=== PATIENT | male | born 1955 | race African-American/Black ===

== ENCOUNTER 2020-06-25 17:11 | Inpatient (IN) ==
[2020-06-25] MEDS ORDERED: HEPARIN DRIP 25,000 UNITS/500 ML PREMIX IV ONE (17:21)
[2020-06-25] MEDS ORDERED: DEXTROSE 50% 25 GM/50 ML VIAL IV PRN (18:21)
[2020-06-25] MEDS ORDERED: GLUCAGON 1 MG VIAL IM PRN (18:21)
[2020-06-25] MEDS ORDERED: HEPARIN DRIP 25,000 UNITS/500 ML PREMIX IV SCH (18:30)
[2020-06-25 18:59] LABS: INR 1.1; PT Patient Result 12.4 SECS (10.5-12.0)
[2020-06-25 19:00] LABS: Partial Thromboplastin Time 67.8 SECS (23.9-33.8)
[2020-06-26 00:59] LABS: Partial Thromboplastin Time 45.7 SECS (23.9-33.8)
[2020-06-26] MEDS ORDERED: SODIUM CHLORIDE 0.9% 1,000 ML IV ONE (06:21)
[2020-06-26] MEDS ORDERED: MIDAZOLAM 2 MG/2 ML VIAL ONE (06:21)
[2020-06-26] MEDS ORDERED: propofoL 200 MG/20 ML VIAL IV ONE (06:21)
[2020-06-26] MEDS ORDERED: SEVOFLURANE 1 UNIT/15 MINUTE INH ONE ×6 (06:21→12:34)
[2020-06-26] MEDS ORDERED: ROCURONIUM 50 MG/5 ML VIAL IV ONE ×2 (06:21→10:08)
[2020-06-26] MEDS ORDERED: LACTATED RINGERS 1,000 ML IV ONE ×4 (06:21→11:30)
[2020-06-26] MEDS ORDERED: LIDOCAINE 2% 5 ML VIAL ONE (06:21)
[2020-06-26] MEDS ORDERED: fentaNYL 100 MCG/2 ML VIAL ONE ×3 (06:22→09:28)
[2020-06-26] MEDS ORDERED: HEPARIN 5,000 UNIT/1 ML VIAL ONE (06:33)
[2020-06-26] MEDS ORDERED: VANCOMYCIN 500 MG VIAL ONE (06:33)
[2020-06-26] MEDS ORDERED: HEPARIN/NACL 0.9% 2 UNITS/ML 1,000 UNIT/500 ML BAG IV ONE (06:36)
[2020-06-26] MEDS ORDERED: PHENYLEPHRINE DRIP 20 MG/250 ML PREMIX IV ONE (06:36)
[2020-06-26] MEDS ORDERED: NITROGLYCERIN DRIP 50 MG/250 ML BOTTLE IV ONE (06:36)
[2020-06-26] MEDS ORDERED: ceFAZolin 2,000 MG/50 ML DUPLEX IV ONE (07:00)
[2020-06-26] MEDS ORDERED: ROPIVACAINE 0.5% 30 ML VIAL ONE ×2 (08:07→08:10)
[2020-06-26] MEDS ORDERED: LIDOCAINE 1% 5 ML VIAL ONE (08:07)
[2020-06-26] MEDS ORDERED: DEXAMETHASONE 4 MG/1 ML VIAL ONE (08:07)
[2020-06-26] MEDS ORDERED: LACTATED RINGERS 1,000 ML IV SCH (08:30)
[2020-06-26] MEDS ORDERED: ceFAZolin 1,000 MG VIAL ONE ×2 (08:55→11:46)
[2020-06-26] MEDS ORDERED: SUGAMMADEX 200 MG/2 ML VIAL IV ONE (11:10)
[2020-06-26 11:31] LABS: ABG HCO3 24.4 MMOL/L (20-26); ABG PCO2 38.6 MM HG (35-48); ABG PH 7.409 (7.35-7.45); ABG TCO2 21.4 MMOL/L (23-27); Glucose Heart Surgery 273 MG/DL (74-106); Hematocrit Heart Surgery 39.5 PERCENT (42-52); Hemoglobin Heart Surgery 12.8 G/DL (14.0-18.0); Ionized Calcium Arterial 1.15 MMOL/L (1.21-1.46); PCO2 Patient Temp Arterial 38.6 MMHG; PH Patient Temp Arterial 7.409; Patient Temperature 37 CELCIUS; Potassium Heart/CVR 4.5 MMOL/L (3.5-5.1); Sodium Heart/CVR 133 MMOL/L (135-145)
[2020-06-26] MEDS ORDERED: HYDROmorphone 2 MG/1 ML VIAL ONE (11:54)
[2020-06-26] MEDS ORDERED: ONDANSETRON 4 MG/2 ML VIAL ONE ×3 (11:55)
[2020-06-26] MEDS ORDERED: ONDANSETRON 4 MG/2 ML VIAL IV PRN (11:59)
[2020-06-26] MEDS ORDERED: NALOXONE 0.4 MG/ML VIAL IV PRN (12:04)
[2020-06-26] MEDS: LACTATED RINGERS 1,000 ML IV SCH ×2 (12:20→20:25)
[2020-06-26 12:37] LABS: Bacteria,Urine Occasional /HPF (Few); Bilirubin,Urine Negative (Negative); Blood, Urine Small mg/dL (Negative); Glucose,Urine (UA) 150 mg/dL (Negative); Ketones,Urine Negative (Negative); Mucus,Urine Occasional /LPF (Occasional); Nitrite,Urine Negative (Negative); Protein,Urine 30 MG/DL; RBC,Urine 1 /HPF (0-4); Squamous Epithelial Cell,Urine Occasional /HPF (0-10); Urine Appearance CLEAR (Clear); Urine Color Yellow (Yellow); Urine Specific Gravity 1.018 (1.001-1.035); Urine Urobilinogen < 2.0 EU/DL (0.2-1.0)
[2020-06-26 12:53] LABS: Hematocrit 40.8 VOL% (42.0-52.0); Hemoglobin 13.1 GM/DL (14.0-18.0)
[2020-06-26 13:09] LABS: Calcium 8.2 MG/DL (8.5-10.1); Osmolality,Calculated 282.7 MOS/KG (273-304); Potassium 4.5 MMOL/L (3.5-5.1)
[2020-06-26] MEDS ORDERED: GLUCAGON 1 MG VIAL IM PRN (13:11)
[2020-06-26] MEDS ORDERED: DEXTROSE 50% 25 GM/50 ML VIAL IV PRN (13:11)
[2020-06-26] MEDS: HYDROmorphone PCA 30 MG/30 ML SYRINGE IV SCH (13:33)
[2020-06-26] MEDS: ALUMINUM/MAGNES/SIMETH MAX STR 30 ML UDCUP PER TUBE SCH ×3 (17:19→23:47)
[2020-06-26] MEDS: INSULIN REGULAR 100 UNIT/ML SUBCUT SCH (17:56)
[2020-06-27] MEDS: LACTATED RINGERS 1,000 ML IV SCH ×3 (03:39→20:49)
[2020-06-27] MEDS: INSULIN REGULAR 100 UNIT/ML SUBCUT SCH ×5 (04:22→23:44)
[2020-06-27 05:06] LABS: Basophils % 0.3 % (0.0-0.8); Hematocrit 41.6 VOL% (42.0-52.0); Hemoglobin 13.3 GM/DL (14.0-18.0); Immature Granulocytes % 0.4 %; Immature Granulocytes Absolute 0.03 #; Lymphocytes # 0.7 10*3/uL (1.4-4.0); Lymphocytes % 9.4 % (21.2-54.2); Mean Platelet Volume 11.3 FL (9.6-12.0); Monocytes % 8.8 % (1.7-12.7); Neutrophils % 81.1 % (38.7-73.9); Platelet Count 157 T/CUMM (130-400); Red Blood Count 4.16 MC/CUMM (3.8-5.5); Red Cell Distribution Width 11.9 % (9.3-17.3); White Blood Count 7.4 T/CUMM (4-12)
[2020-06-27 05:25] LABS: Calcium 8.3 MG/DL (8.5-10.1)
[2020-06-27] MEDS: ALUMINUM/MAGNES/SIMETH MAX STR 30 ML UDCUP PER TUBE SCH (05:40)
[2020-06-27] MEDS: METOCLOPRAMIDE 10 MG/2 ML VIAL IV SCH ×3 (12:05→23:55)
[2020-06-27] MEDS: HYDROmorphone PCA 30 MG/30 ML SYRINGE IV SCH (12:51)
[2020-06-28] MEDS: LACTATED RINGERS 1,000 ML IV SCH (04:53)
[2020-06-28] MEDS: METOCLOPRAMIDE 10 MG/2 ML VIAL IV SCH (06:25)
[2020-06-28] MEDS: INSULIN REGULAR 100 UNIT/ML SUBCUT SCH ×3 (06:33→18:40)
[2020-06-28 07:05] LABS: Basophils % 0.2 % (0.0-0.8); Hematocrit 35.4 VOL% (42.0-52.0); Hemoglobin 11.1 GM/DL (14.0-18.0); Immature Granulocytes % 0.5 %; Immature Granulocytes Absolute 0.05 #; Lymphocytes # 1.2 10*3/uL (1.4-4.0); Lymphocytes % 13.4 % (21.2-54.2); Mean Corpuscular HGB Conc 31.4 GM/DL (32-36); Mean Corpuscular Volume 100.6 FL (87-102); Mean Platelet Volume 10.8 FL (9.6-12.0); Monocytes % 11.3 % (1.7-12.7); Neutrophils % 74.6 % (38.7-73.9); Platelet Count 173 T/CUMM (130-400); Red Blood Count 3.52 MC/CUMM (3.8-5.5); Red Cell Distribution Width 11.9 % (9.3-17.3); White Blood Count 9.3 T/CUMM (4-12)
[2020-06-28] MEDS ORDERED: DEXTROSE 50% 25 GM/50 ML VIAL IV PRN (09:26)
[2020-06-28] MEDS ORDERED: GLUCAGON 1 MG VIAL IM PRN (09:26)
[2020-06-28] MEDS ORDERED: HYDROmorphone 2 MG/1 ML VIAL IV PRN ×2 (09:27)
[2020-06-28] MEDS ORDERED: BENZOCAINE/MENTHOL LOZENGE 18/BOX PO PRN (09:27)
[2020-06-28] MEDS: LACTOBACILLUS ACIDOPHILUS/BULGARICUS 1 PACKET PO SCH ×3 (11:18→21:11)
[2020-06-28] MEDS: ENOXAPARIN 40 MG/0.4 ML SYRINGE SUBCUT SCH (11:18)
[2020-06-29] MEDS: INSULIN REGULAR 100 UNIT/ML SUBCUT SCH ×5 (02:31→23:45)
[2020-06-29] MEDS: LACTOBACILLUS ACIDOPHILUS/BULGARICUS 1 PACKET PO SCH ×3 (08:51→20:37)
[2020-06-29] MEDS: ENOXAPARIN 40 MG/0.4 ML SYRINGE SUBCUT SCH (08:59)
[2020-06-30] MEDS: INSULIN REGULAR 100 UNIT/ML SUBCUT SCH ×2 (06:42→12:41)
[2020-06-30 08:50] LABS: Basophils % 0.6 % (0.0-0.8); Eosinophils # 0.2 10*3/uL (0.0-0.87); Eosinophils % 2.9 % (0.00-10.9); Hemoglobin 12.7 GM/DL (14.0-18.0); Immature Granulocytes % 0.9 %; Immature Granulocytes Absolute 0.06 #; Lymphocytes % 15.1 % (21.2-54.2); Mean Corpuscular HGB Conc 32.6 GM/DL (32-36); Mean Corpuscular Volume 97.5 FL (87-102); Mean Platelet Volume 10.1 FL (9.6-12.0); Monocytes % 11.9 % (1.7-12.7); Neutrophils % 68.6 % (38.7-73.9); Platelet Count 251 T/CUMM (130-400); Red Cell Distribution Width 11.9 % (9.3-17.3); White Blood Count 6.9 T/CUMM (4-12)
[2020-06-30] MEDS: ENOXAPARIN 40 MG/0.4 ML SYRINGE SUBCUT SCH (08:58)
[2020-06-30] MEDS: LACTOBACILLUS ACIDOPHILUS/BULGARICUS 1 PACKET PO SCH (09:00)
[2020-06-30 09:05] LABS: Calcium 8.8 MG/DL (8.5-10.1); Osmolality,Calculated 280.7 MOS/KG (273-304); Potassium 3.1 MMOL/L (3.5-5.1)
[2020-06-30 11:05] VITALS: BP 118/79
== END 2020-06-30 15:47 | disposition home or self-care (01) | DRG 271 ==
LOC: EDBD → EDUNIT# → N.ED 17:11 → N.EDINP 18:41 → N.3E 19:50
PROVIDERS: ADMIT Surgery; ATTEND Surgery

== ENCOUNTER 2021-03-20 13:57 | Inpatient (IN) ==
[2021-03-20 17:52] LABS: Basophils % 0.5 % (0.0-0.8); Eosinophils # 0.7 10*3/uL (0.0-0.87); Eosinophils % 9.5 % (0.00-10.9); Hematocrit 41.9 VOL% (42.0-52.0); Hemoglobin 12.8 GM/DL (14.0-18.0); Immature Granulocytes % 0.5 %; Immature Granulocytes Absolute 0.04 #; Lymphocytes # 1.8 10*3/uL (1.4-4.0); Lymphocytes % 23.4 % (21.2-54.2); Mean Corpuscular HGB Conc 30.5 GM/DL (32-36); Mean Corpuscular Volume 100.7 FL (87-102); Mean Platelet Volume 9.9 FL (9.6-12.0); Monocytes % 8.6 % (1.7-12.7); Neutrophils % 57.5 % (38.7-73.9); Platelet Count 215 T/CUMM (130-400); Red Blood Count 4.16 MC/CUMM (3.8-5.5); Red Cell Distribution Width 13.9 % (9.3-17.3); White Blood Count 7.6 T/CUMM (4-12)
[2021-03-20 18:10] LABS: Alanine Aminotransferase 18 U/L (16-61); Albumin 3.3 G/DL (3.4-5.0); Alkaline Phosphatase 117 U/L (45-117); Aspartate Amino Transferase 11 U/L (0-37); Bilirubin,Total < 0.39 MG/DL (0.20-1.00); Blood Urea Nitrogen 15 MG/DL (7-18); Carbon Dioxide 27 MMOL/L (21-32); Estimated Glom Filtration Rate 83 ML/MIN; Glucose 158 MG/DL (74-106); Osmolality,Calculated 282.4 MOS/KG (273-304); Potassium 4.6 MMOL/L (3.5-5.1); Sodium 140 MMOL/L (136-145); Total Protein 7.7 G/DL (6.4-8.2)
[2021-03-20] MEDS ORDERED: ONDANSETRON 4 MG/2 ML VIAL IV PRN (22:44)
[2021-03-20] MEDS ORDERED: ACETAMINOPHEN 325 MG TABLET PO PRN (22:44)
[2021-03-21] MEDS: PIPERACILLIN/TAZOBACTAM 3,375 MG in SODIUM CHLORIDE 0.9% 100 ML IV SCH ×3 (00:42→14:17)
[2021-03-21] MEDS: DEXTROSE 5% NACL 0.45% 1,000 ML IV SCH ×2 (00:42→20:57)
[2021-03-21] MEDS ORDERED: hydrALAZINE 20 MG/1 ML VIAL IV PRN (00:59)
[2021-03-21] MEDS ORDERED: VANCOMYCIN INJ 1,250 MG in SODIUM CHLORIDE 0.9% 250 ML IV SCH (01:00)
[2021-03-21] MEDS ORDERED: PIPERACILLIN/TAZOBACTAM 3,375 MG in SODIUM CHLORIDE 0.9% 100 ML IV SCH (01:00)
[2021-03-21] MEDS: VANCOMYCIN INJ 1,250 MG in SODIUM CHLORIDE 0.9% 250 ML IV SCH ×2 (04:18→15:30)
[2021-03-21] MEDS: PANTOPRAZOLE 40 MG TABLET PO SCH (08:58)
[2021-03-21] MEDS: ENOXAPARIN 30 MG/0.3 ML SYRINGE SUBCUT SCH (17:18)
[2021-03-22] MEDS: PIPERACILLIN/TAZOBACTAM 3,375 MG in SODIUM CHLORIDE 0.9% 100 ML IV SCH ×3 (00:16→17:28)
[2021-03-22] MEDS: VANCOMYCIN INJ 1,250 MG in SODIUM CHLORIDE 0.9% 250 ML IV SCH ×3 (04:24→22:28)
[2021-03-22] MEDS: PANTOPRAZOLE 40 MG TABLET PO SCH (08:36)
[2021-03-22] MEDS: ENOXAPARIN 30 MG/0.3 ML SYRINGE SUBCUT SCH (17:28)
[2021-03-23] MEDS: PIPERACILLIN/TAZOBACTAM 3,375 MG in SODIUM CHLORIDE 0.9% 100 ML IV SCH ×3 (02:18→19:12)
[2021-03-23] MEDS: VANCOMYCIN INJ 1,250 MG in SODIUM CHLORIDE 0.9% 250 ML IV SCH ×2 (08:12→15:51)
[2021-03-23] MEDS ORDERED: GLUCAGON 1 MG VIAL IM PRN (09:11)
[2021-03-23] MEDS ORDERED: DEXTROSE 10% 250 ML BAG IV PRN (09:11)
[2021-03-23] MEDS: PANTOPRAZOLE 40 MG TABLET PO SCH (09:43)
[2021-03-23] MEDS: INSULIN REGULAR 100 UNIT/ML SUBCUT SCH ×3 (14:17→20:34)
[2021-03-23] MEDS ORDERED: ENOXAPARIN 40 MG/0.4 ML SYRINGE SUBCUT SCH (21:00)
[2021-03-24] MEDS: PIPERACILLIN/TAZOBACTAM 3,375 MG in SODIUM CHLORIDE 0.9% 100 ML IV SCH ×3 (03:02→17:01)
[2021-03-24] MEDS: DEXTROSE 5% NACL 0.45% 1,000 ML IV SCH (03:03)
[2021-03-24] MEDS: INSULIN REGULAR 100 UNIT/ML SUBCUT SCH ×4 (08:12→20:19)
[2021-03-24] MEDS: VANCOMYCIN INJ 1,250 MG in SODIUM CHLORIDE 0.9% 250 ML IV SCH (08:12)
[2021-03-24] MEDS: PANTOPRAZOLE 40 MG TABLET PO SCH (08:12)
[2021-03-24] MEDS ORDERED: HEPARIN 5,000 UNIT/1 ML VIAL ONE (12:15)
[2021-03-24] MEDS ORDERED: fentaNYL 100 MCG/2 ML VIAL ONE (12:20)
[2021-03-24] MEDS ORDERED: MIDAZOLAM 2 MG/2 ML VIAL ONE (12:20)
[2021-03-24] MEDS ORDERED: ETOMIDATE 40 MG/20 ML VIAL IV ONE (12:20)
[2021-03-24] MEDS ORDERED: ONDANSETRON 4 MG/2 ML VIAL ONE (12:20)
[2021-03-24] MEDS ORDERED: LIDOCAINE 2% 5 ML VIAL ONE (12:20)
[2021-03-24] MEDS ORDERED: ROCURONIUM 50 MG/5 ML VIAL IV ONE (12:20)
[2021-03-24] MEDS ORDERED: propofoL 200 MG/20 ML VIAL IV ONE (12:20)
[2021-03-24] MEDS ORDERED: DEXAMETHASONE 4 MG/1 ML VIAL ONE (12:20)
[2021-03-24] MEDS ORDERED: ACETAMINOPHEN INJ 1,000 MG/100 ML VIAL IV ONE (12:24)
[2021-03-24] MEDS ORDERED: HEPARIN 10,000 UNIT/10 ML VIAL ONE (12:25)
[2021-03-24] MEDS ORDERED: LACTATED RINGERS 1,000 ML IV SCH (12:30)
[2021-03-24] MEDS ORDERED: PHENYLEPHRINE 1 MG/10 ML SYRINGE IV ONE ×2 (13:06→13:47)
[2021-03-24] MEDS ORDERED: SEVOFLURANE 1 UNIT/15 MINUTE INH ONE ×7 (13:16→14:47)
[2021-03-24] MEDS ORDERED: LACTATED RINGERS 1,000 ML IV ONE (13:36)
[2021-03-24] MEDS ORDERED: SODIUM CHLORIDE 0.9% 250 ML IV ONE (14:04)
[2021-03-24] MEDS ORDERED: PHENYLEPHRINE 10 MG/1 ML VIAL IV ONE (14:04)
[2021-03-24] MEDS ORDERED: TISSUE ADHESIVE 1 EACH APPLICATOR TOP ONE (14:54)
[2021-03-24] MEDS ORDERED: ONDANSETRON 4 MG/2 ML VIAL IV PRN ×2 (15:24→15:51)
[2021-03-24] MEDS ORDERED: HYDROmorphone 2 MG/1 ML VIAL IV PRN (15:24)
[2021-03-24] MEDS ORDERED: DEXTROSE 10% 25 GM/250 ML BAG IV PRN (15:28)
[2021-03-24] MEDS ORDERED: GLUCAGON 1 MG VIAL IM PRN (15:28)
[2021-03-24] MEDS: HYDROmorphone 2 MG/1 ML VIAL IV PRN ×2 (15:55→16:00)
[2021-03-24] MEDS: LACTATED RINGERS 1,000 ML IV SCH (17:01)
[2021-03-24] MEDS: DOCUSATE SODIUM 100 MG CAPSULE PO SCH (20:19)
[2021-03-25] MEDS: VANCOMYCIN INJ 1,250 MG in SODIUM CHLORIDE 0.9% 250 ML IV SCH ×2 (02:32→21:48)
[2021-03-25] MEDS: PIPERACILLIN/TAZOBACTAM 3,375 MG in SODIUM CHLORIDE 0.9% 100 ML IV SCH ×3 (02:33→16:42)
[2021-03-25] MEDS: LACTATED RINGERS 1,000 ML IV SCH ×2 (02:33→09:49)
[2021-03-25 05:32] LABS: Hematocrit 33.7 VOL% (42.0-52.0); Hemoglobin 10.5 GM/DL (14.0-18.0)
[2021-03-25 05:51] LABS: Calcium 8.5 MG/DL (8.5-10.1); Osmolality,Calculated 276.7 MOS/KG (273-304)
[2021-03-25] MEDS: DOCUSATE SODIUM 100 MG CAPSULE PO SCH ×2 (09:48→20:17)
[2021-03-25] MEDS: ASPIRIN CHEW 81 MG TABLET PO SCH (09:48)
[2021-03-25] MEDS: PANTOPRAZOLE 40 MG TABLET PO SCH (09:48)
[2021-03-25] MEDS: CLOPIDOGREL 75 MG TABLET PO SCH (09:51)
[2021-03-25] MEDS: metFORMIN 500 MG TABLET PO SCH ×2 (12:13→16:44)
[2021-03-25] MEDS: INSULIN REGULAR 100 UNIT/ML SUBCUT SCH ×4 (12:13→20:15)
[2021-03-26] MEDS: PIPERACILLIN/TAZOBACTAM 3,375 MG in SODIUM CHLORIDE 0.9% 100 ML IV SCH ×3 (00:46→18:05)
[2021-03-26] MEDS: metFORMIN 500 MG TABLET PO SCH ×3 (09:47→18:05)
[2021-03-26] MEDS: ASPIRIN CHEW 81 MG TABLET PO SCH (09:47)
[2021-03-26] MEDS: INSULIN REGULAR 100 UNIT/ML SUBCUT SCH ×4 (09:47→21:10)
[2021-03-26] MEDS: PANTOPRAZOLE 40 MG TABLET PO SCH (09:48)
[2021-03-26] MEDS: CLOPIDOGREL 75 MG TABLET PO SCH (09:48)
[2021-03-26] MEDS: DOCUSATE SODIUM 100 MG CAPSULE PO SCH (09:48)
[2021-03-26] MEDS: VANCOMYCIN INJ 1,250 MG in SODIUM CHLORIDE 0.9% 250 ML IV SCH (15:22)
[2021-03-27] MEDS: PIPERACILLIN/TAZOBACTAM 3,375 MG in SODIUM CHLORIDE 0.9% 100 ML IV SCH ×2 (00:28→12:57)
[2021-03-27] MEDS: DOCUSATE SODIUM 100 MG CAPSULE PO SCH ×2 (01:32→08:23)
[2021-03-27] MEDS: metFORMIN 500 MG TABLET PO SCH ×2 (08:23→13:53)
[2021-03-27] MEDS: INSULIN REGULAR 100 UNIT/ML SUBCUT SCH ×2 (08:23→13:53)
[2021-03-27] MEDS: ASPIRIN CHEW 81 MG TABLET PO SCH (08:23)
[2021-03-27] MEDS: CLOPIDOGREL 75 MG TABLET PO SCH (08:23)
[2021-03-27] MEDS: PANTOPRAZOLE 40 MG TABLET PO SCH (08:23)
[2021-03-27] MEDS: VANCOMYCIN INJ 1,250 MG in SODIUM CHLORIDE 0.9% 250 ML IV SCH (10:42)
[2021-03-27 12:21] VITALS: BP 153/89
== END 2021-03-27 14:26 | disposition home health service (06) | DRG 240 ==
LOC: N.ED 13:57 → N.EDINP 22:44 → N.5E 03-21 10:09
PROVIDERS: ADMIT Surgery; ATTEND Surgery

== ENCOUNTER 2021-08-29 02:47 | Inpatient (IN) ==
[2021-08-29 03:45] LABS: Basophils % 0.3 % (0.0-0.8); Eosinophils % 0.1 % (0.00-10.9); Hematocrit 41.8 VOL% (42.0-52.0); Hemoglobin 13.7 GM/DL (14.0-18.0); Immature Granulocytes % 0.5 %; Immature Granulocytes Absolute 0.04 #; Lymphocytes # 0.9 10*3/uL (1.4-4.0); Lymphocytes % 9.8 % (21.2-54.2); Mean Corpuscular HGB Conc 32.8 GM/DL (32-36); Mean Corpuscular Volume 98.6 FL (87-102); Mean Platelet Volume 10.7 FL (9.6-12.0); Monocytes # 1.2 10*3/uL (0.11-0.8); Monocytes % 14.3 % (1.7-12.7); Platelet Count 221 T/CUMM (130-400); Red Blood Count 4.24 MC/CUMM (3.8-5.5); White Blood Count 8.7 T/CUMM (4-12)
[2021-08-29 04:04] LABS: Albumin 2.9 G/DL (3.4-5.0); Bilirubin,Total 0.9 MG/DL (0.20-1.00); Potassium 3.6 MMOL/L (3.5-5.1); Total Protein 7.2 G/DL (6.4-8.2)
[2021-08-29] MEDS ORDERED: CLINDAMYCIN INJ 600 MG/50 ML PREMIX IV STA (04:18)
[2021-08-29] MEDS ORDERED: SODIUM CHLORIDE 0.9% 1,000 ML IV STA (04:33)
[2021-08-29] MEDS ORDERED: VANCOMYCIN INJ 1,000 MG in SODIUM CHLORIDE 0.9% 250 ML IV STA ×2 (04:37→05:50)
[2021-08-29] MEDS ORDERED: MORPHINE 2 MG/1 ML SYRINGE IV PRN (04:58)
[2021-08-29] MEDS ORDERED: SIMETHICONE CHEW 125 MG TABLET PO PRN (04:58)
[2021-08-29] MEDS ORDERED: GLUCAGON 1 MG VIAL IM PRN (04:58)
[2021-08-29] MEDS ORDERED: VANCOMYCIN 1,000 MG VIAL ONE (04:59)
[2021-08-29] MEDS ORDERED: CEFEPIME 2,000 MG in SODIUM CHLORIDE 0.9% 100 ML IV SCH (05:00)
[2021-08-29] MEDS ORDERED: DEXTROSE 10% 250 ML BAG IV PRN ×2 (05:27→09:32)
[2021-08-29] MEDS: metroNIDAZOLE INJ 500 MG/100 ML PREMIX IV SCH ×3 (07:12→21:55)
[2021-08-29] MEDS: SODIUM CHLORIDE 0.9% 1,000 ML IV SCH ×2 (07:12→15:25)
[2021-08-29] MEDS: CEFEPIME 1,000 MG in SODIUM CHLORIDE 0.9% 100 ML IV SCH ×3 (07:40→21:55)
[2021-08-29] MEDS: INSULIN REGULAR 100 UNIT/ML SUBCUT SCH ×4 (08:59→21:55)
[2021-08-29] MEDS ORDERED: ENOXAPARIN 40 MG/0.4 ML SYRINGE SUBCUT SCH (09:00)
[2021-08-29] MEDS: PANTOPRAZOLE 40 MG TABLET PO SCH (11:22)
[2021-08-29] MEDS: DOCUSATE SODIUM 100 MG CAPSULE PO SCH ×2 (11:22→21:55)
[2021-08-29] MEDS: SODIUM HYPOCHLORITE 0.25% IRRIG 473 ML BOTTLE TOP SCH (14:26)
[2021-08-29] MEDS ORDERED: VANCOMYCIN INJ 1,500 MG in SODIUM CHLORIDE 0.9% 500 ML IV SCH (17:00)
[2021-08-29] MEDS ORDERED: VANCOMYCIN INJ 1,000 MG in SODIUM CHLORIDE 0.9% 250 ML IV SCH (23:00)
[2021-08-30 05:42] LABS: Calcium 8.6 MG/DL (8.5-10.1); Osmolality,Calculated 281.3 MOS/KG (273-304); Potassium 3.7 MMOL/L (3.5-5.1)
[2021-08-30 05:47] LABS: Basophils % 0.5 % (0.0-0.8); Eosinophils % 0.3 % (0.00-10.9); Hematocrit 36.7 VOL% (42.0-52.0); Hemoglobin 11.6 GM/DL (14.0-18.0); Immature Granulocytes % 0.7 %; Immature Granulocytes Absolute 0.05 #; Lymphocytes # 1.3 10*3/uL (1.4-4.0); Lymphocytes % 16.6 % (21.2-54.2); Mean Corpuscular HGB Conc 31.6 GM/DL (32-36); Mean Corpuscular Volume 102.2 FL (87-102); Mean Platelet Volume 10.9 FL (9.6-12.0); Monocytes # 0.9 10*3/uL (0.11-0.8); Monocytes % 12.1 % (1.7-12.7); Neutrophils % 69.8 % (38.7-73.9); Platelet Count 194 T/CUMM (130-400); Red Blood Count 3.59 MC/CUMM (3.8-5.5); White Blood Count 7.7 T/CUMM (4-12)
[2021-08-30] MEDS: metroNIDAZOLE INJ 500 MG/100 ML PREMIX IV SCH (06:04)
[2021-08-30] MEDS: CEFEPIME 1,000 MG in SODIUM CHLORIDE 0.9% 100 ML IV SCH (06:04)
[2021-08-30 07:30] LABS: Eosinophils 2 % (0-10); Lymphocytes 22 % (20-55); Platelet Estimate Normal; Total Cells Counted 100
[2021-08-30] MEDS: SODIUM HYPOCHLORITE 0.25% IRRIG 473 ML BOTTLE TOP SCH (08:40)
[2021-08-30] MEDS: INSULIN REGULAR 100 UNIT/ML SUBCUT SCH (08:50)
[2021-08-30] MEDS ORDERED: CLOPIDOGREL 75 MG TABLET PO SCH (09:00)
[2021-08-30] MEDS ORDERED: ASPIRIN CHEW 81 MG TABLET PO SCH (09:00)
[2021-08-30 10:16] VITALS: BP 169/81
[2021-08-30] MEDS ORDERED: CEFEPIME 1,000 MG in SODIUM CHLORIDE 0.9% 100 ML IV SCH (12:00)
[2021-08-30] MEDS: DOCUSATE SODIUM 100 MG CAPSULE PO SCH (13:01)
[2021-08-30] MEDS: PANTOPRAZOLE 40 MG TABLET PO SCH (13:02)
== END 2021-08-30 09:48 | disposition home or self-care (01) | DRG 299 ==
LOC: N.ED 02:47 → N.EDINP 04:58 → N.5E 05:45 → N.EDINP 06:35
PROVIDERS: ADMIT Internal Medicine; ATTEND Internal Medicine